=== PATIENT | female | born 1950 | race Caucasian/White ===

== ENCOUNTER 2016-06-09 09:15 | Outpatient (CLI) | payer BC ==
[~2016-06-09] VITALS: Ht 162.6 cm; Wt 71.7 kg
[~2016-06-09 09:15] MED LIST: ASP81CT; BUDE3CAP; BUDE3CAP PO; BUDE3CAP15 PO; CHOL200035 PO; CLC600T; CTRZ10T PO; ESTR1PAT7 TD; GLUCOSAMINE; GLYC2TAB PO; MEPE50TA PO; MERC50TA PO; PANT40TA; PANT40TA PO; POTASSIUM; Potassium Citrate PO; VIVELLE PATCH; [UNRECOGNIZED DRUG - OTHER]
--- OUTSIDE RECORDS SUMMARY | 2016-06-09 09:18 | XMS REPORT | Continuity of Care Document ---
Author Author [facility] Organization [facility] Address Unknown Phone Unavailable Care Team Providers Care Director Medical Science Name Role Phone DAYLIN WING MD PCP Insurance Providers Payer Name Policy Number Subscriber Name Relationship [facility] [id number] Turner Gunter 18 Self / Same As Patient Advance Directives Directive Response Recorded Date/Time Advance Directives No 03/28/16 8:18pm Health Care Power of Material Chaser No 03/28/16 8:18pm Organ Donor Yes 03/28/16 8:18pm Resuscitation Status Full Code 03/28/16 8:18pm Chief Complaint and Reason for Visit Chief Complaint Chest Pain Reason for Visit Chest pain Problems Active Problems Medical Problem Onset Date Status Chest pain Unknown Acute Medications Current Home Medications Medication Dose Units Route Directions Days/Qty Instructions Start Date Cetirizine Hcl 10 Mg Daily 02/17/08 [Purenethol] 1.5 Tab Daily 02/17/08 [Glucosamine] ?Mg Daily 02/17/08 Calcium Carbonate 600 Mg Daily 02/17/08 Pantoprazole Sodium 40 Mg 40 Mg Oral Daily 1 08/16/09 [Vivelle Patch] Twice Wk 08/21/11 [Potassium] 3 Tabs A.m./3 P.m. 08/21/11 Cholecalciferol (Vitamin D3) 2,000 Unit 2,000 Unit Oral Daily Past Home Medications Medication Directions Ordered Status Meperidine Hcl 50 Mg Tablet, 50 Mg Oral As Needed 08/10/09 Discontinued Pantoprazole Sodium 40 Mg Tablet., 08/10/09 Discontinued Social History Social History Problem Response Recorded Date/Time Alcohol Use Occasionally Uses 03/28/2016 8:18pm Recreational Drug Use No 03/28/2016 8:18pm Recent Foreign Travel No 03/28/2016 8:18pm Recent Infectious Disease Exposure No 03/28/2016 8:18pm Hospitalization with Isolation Denies 03/28/2016 8:18pm Sexually Transmitted Disease No 03/28/2016 8:18pm Smoking Status Never a Smoker 03/28/2016 8:18pm Recent Hopitalizations Y FOR SURGERIES 03/28/2016 8:18pm Sexually Transmitted Disease No 03/28/2016 8:18pm Hospitalization with Isolation Denies 03/28/2016 8:18pm Hx Sexually Transmitted Disorders No 08/10/2009 9:37pm Query Response Start Date Stop Date Smoking Status Never a Smoker Hospital Discharge Instructions No hospital discharge instructions. Plan of Care Discharge Date 03/28/16 10:30pm Disposition 01 HOME, SELF-CARE Condition at Discharge Improved Instructions/Education Provided Chest Pain (DC) Prescriptions See Medication Section Referrals Gustavo SORTO MD - DAYLIN WING MD - Primary Care Physician DAYLIN WING MD - Primary Care Physician Additional Instructions/Education You may take Tylenol and/or ibuprofen for pain. Take ibuprofen with food or milk to avoid stomach irritation Continue taking Nexium. Contact Dr. Sorto's office tomorrow to arrange a stress test on . Return to the emergency room with recurrent, persistent, or worsening symptoms. Take aspirin 81 mg daily until otherwise instructed. All discharge instructions reviewed with patient and/or family. Voiced understanding. Functional Status No functional status results. Allergies, Adverse Reactions, Alerts No known allergies. Immunizations No immunization records. Vital Signs Acute Vital Signs Vital Response Date/Time Temperature (Fahrenheit) 98.0 degrees F (97.6 - 99.5) 03/28/2016 10:34pm Temperature (Calculated Celsius) 36.22878 degrees C (36.4 - 37.5) 03/28/2016 10:34pm Temperature Source Temporal 03/28/2016 10:34pm Pulse Rate (adult) 65 bpm (60 - 90) 03/28/2016 10:34pm Respiratory Rate 15 bpm (12 - 24) 03/28/2016 10:34pm O2 Sat by Pulse Oximetry 97 % (88 - 100) 03/28/2016 10:34pm Blood Pressure 111/66 mm Hg 03/28/2016 10:34pm Blood Pressure Mean 95 mm Hg 03/28/2016 8:18pm Pain Numeric Pain Scale 9 03/28/2016 10:34pm Height (Feet) 5 feet 03/28/2016 8:18pm Height (Inches) 4.00 inches 03/28/2016 8:18pm Height (Calculated Centimeters) 162.267974 cm 03/28/2016 8:18pm Weight (Pounds) 159 pounds 03/28/2016 8:18pm Weight (Ounces) 0.0 oz 03/28/2016 8:18pm Weight (Calculated Grams) 43064.188 gm 03/28/2016 8:18pm Weight (Calculated Kilograms) 72.368105 kilograms 03/28/2016 8:18pm Calculated BMI 27.3 03/28/2016 8:18pm Capillary Refill Capillary Refill Less Than 3 Seconds 03/28/2016 8:18pm Capillary Refill Capillary Refill Less Than 3 Seconds 03/28/2016 8:18pm Results Laboratory Results Test Name Result Units Flags Reference Collection Date/Time Result Date/ Time Comments White Blood Count 5.3 10^3/uL 4.3-11.0 03/28/2016 8:29pm 03/28/2016 8: 49pm Red Blood Count 3.88 10^6/uL L 4.35-5.85 03/28/2016 8:29pm 03/28/2016 8: 49pm Hemoglobin 13.1 G/DL 11.5-16.0 03/28/2016 8:29pm 03/28/2016 8:49pm Hematocrit 38 % 35-52 03/28/2016 8:29pm 03/28/2016 8:49pm Mean Corpuscular Volume 99 FL 80-99 03/28/2016 8:29pm 03/28/2016 8: 49pm Mean Corpuscular Hemoglobin 34 PG 25-34 03/28/2016 8:29pm 03/28/2016 8: 49pm Mean Corpuscular Hemoglobin Concent 34 G/DL 32-36 03/28/2016 8:29pm 8:49pm Red Cell Distribution Width 15.6 % H 10.0-14.5 03/28/2016 8:29pm 2015 8:49pm Platelet Count 373 10^3/uL 130-400 03/28/2016 8:29pm 03/28/2016 8:49pm Mean Platelet Volume 8.4 FL 7.4-10.4 03/28/2016 8:29pm 03/28/2016 8: 49pm Neutrophils (%) (Auto) 65 % 42-75 03/28/2016 8:29pm 03/28/2016 8:49pm Lymphocytes (%) (Auto) 26 % 12-44 03/28/2016 8:29pm 03/28/2016 8:49pm Monocytes (%) (Auto) 7 % 0-12 03/28/2016 8:pm 03/28/2016 8:49pm Eosinophils (%) (Auto) 1 % 0-10 03/28/2016 8:29pm 03/28/2016 8:49pm Basophils (%) (Auto) 1 % 0-10 03/28/2016 8:pm 03/28/2016 8:49pm Neutrophils # (Auto) 3.4 X 10^3 1.8-7.8 03/28/2016 8:29pm 03/28/2016 8: 49pm Lymphocytes # (Auto) 1.4 X 10^3 1.0-4.0 03/28/2016 8:29pm 03/28/2016 8: 49pm Monocytes # (Auto) 0.4 X 10^3 0.0-1.0 03/28/2016 8:29pm 03/28/2016 8: 49pm Eosinophils # (Auto) 0.1 10^3/uL 0.0-0.3 03/28/2016 8:29pm 03/28/2016 8 :49pm Basophils # (Auto) 0.0 10^3/uL 0.0-0.1 03/28/2016 8:29pm 03/28/2016 8: 49pm Prothrombin Time 17.0 SEC H 12.2-14.7 03/28/2016 8:29pm 03/28/2016 8: 50pm INR Comment 1.4 0.8-1.4 03/28/2016 8:29pm 03/28/2016 8:50pm INTERPRETIVE DATA SUGGESTED THERAPEUTIC RANGE FOR INR'S: VENOUS THROMBOSIS, PULMONARY EMBOLISM, OR PREVENTION OF SYSTEMIC EMBOLISM (EG. IN ATRIAL FIBRILLATION): 2.0 - 3.0 MECHANICAL PROSTHETIC HEART VALVES: 2.5 - 3.5* *NOTE: INR'S UP TO 4.5 MAY BE NECESSARY IN SELECTED GROUPS OF HIGH RISK PATIENTS. [employer] CONSENSUS CONFERENCE ON ANTITHROMBOTIC THERAPY (2000). Activated Partial Thromboplast Time 43 SEC H 24-35 03/28/2016 8:29pm 8:51pm Sodium Level 139 MMOL/L 135-145 03/28/2016 8:29pm 03/28/2016 8:59pm Potassium Level 4.0 MMOL/L 3.6-5.0 03/28/2016 8:29pm 03/28/2016 8:59pm Chloride Level 108 MMOL/L H 98-107 03/28/2016 8:29pm 03/28/2016 8:59pm Carbon Dioxide Level 21 MMOL/L 21-32 03/28/2016 8:29pm 03/28/2016 8: 59pm Anion Gap 10 MMOL/L 5-14 03/28/2016 8:29pm 03/28/2016 8:59pm Blood Urea Nitrogen 14 MG/DL 7-18 03/28/2016 8:29pm 03/28/2016 8:59pm Creatinine 0.79 MG/DL 0.60-1.30 03/28/2016 8:29pm 03/28/2016 8:59pm BUN/Creatinine Ratio 18 03/28/2016 8:29pm 03/28/2016 8:59pm Estimat Glomerular Filtration Rate > 60 03/28/2016 8:292015 8:59pm GFR INTERPRETIVE DATA UNITS FOR ESTIMATED GFR (eGFR): mL/min/1.73 M2 REFERENCE RANGE FOR ESTIMATED GFR (eGFR) eGFR NORMAL eGFR >60 MODERATELY DECREASED eGFR 30-59 SEVERLY DECREASED eGFR 15-29 KIDNEY FAILURE <15 (OR DIALYSIS) Glucose Level 154 MG/DL H 70-105 03/28/2016 8:29pm 03/28/2016 8:59pm Calcium Level 8.4 MG/DL L 8.5-10.1 03/28/2016 8:29pm 03/28/2016 8:59pm Magnesium Level 2.0 MG/DL 1.8-2.4 03/28/2016 8:29pm 03/28/2016 8:59pm Total Bilirubin 0.9 MG/DL 0.1-1.0 03/28/2016 8:29pm 03/28/2016 8:59pm Alkaline Phosphatase 58 U/L 40-136 03/28/2016 8:29pm 03/28/2016 8:59pm Aspartate Amino Transf (AST/SGOT) 37 U/L H 5-34 03/28/2016 8:29pm 2015 8:59pm Alanine Aminotransferase (ALT/SGPT) 89 U/L H 0-55 03/28/2016 8:29pm 03/28 8:59pm Troponin I < 0.30 NG/ML <0.30 03/28/2016 8:29pm 03/28/2016 9:07pm Myoglobin 29.5 NG/ML 10.0-92.0 03/28/2016 8:29pm 03/28/2016 9:07pm Total Protein 6.1 G/DL L 6.4-8.2 03/28/2016 8:29pm 03/28/2016 8:59pm Albumin 3.9 G/DL 3.2-4.5 03/28/2016 8:29pm 03/28/2016 8:59pm Procedures Procedure Status Date Provider(s) Tracing only of electrocardiogram Active 03/28/16 BRANDIE BETANCOURT MD Encounters Encounter Location Arrival/Admit Date Discharge/Depart Date Attending Provider Departed Emergency Room [facility] 03/28/16 8:01pm 03/28 10:30pm BRANDIE BETANCOURT MD Recent Diagnosis
[2016-06-09] MEDS ORDERED: BUPIVACAINE 0.25% 30 ML (SENSORCAINE) VIAL ONE (09:24)
[2016-06-09] MEDS ORDERED: LIDOCAINE 1% INJ 20 ML (XYLOCAINE) VIAL ONE (09:24)
[2016-06-09] MEDS ORDERED: TRIAMCINOLONE ACET (KENALOG-40) 40 MG/ML 1 ML VIAL ONE (09:24)
[2016-06-09 09:35] VITALS: BP 143/88
[2016-06-09 10:07] VITALS: BP 128/75
--- NOTE | 2016-06-09 12:17 | Pain Medicine-Procedure ---
Procedure Pre-Op/Post-Op Diagnosis Diagnosis: Sacrococcygeal disorder Indications for Operation Hip pain Attending Surgeon Kianna Procedure Date of Service: Jun 09, 2016 Procedure: Flouroscopic guided left sacroiliac joint injection PROCEDURE IN DETAIL: After obtaining informed consent from the patient, the patient's chart was reviewed. The patient was then brought to the procedure room and placed in the prone position. A time out was performed. The back was prepped with antiseptic solution and under fluoroscopic guidance the patient's sacroiliac joint on the left side was identified. Left sacroiliac joint was identified with fluoroscopic guidance and 2 mL's of 1% lidocaine was used to anesthestize the skin and then one 22-gauge 3.5 inch spinal needle was inserted and advance under flouroscopic guidance until it was in the posterior inferior 1 /3 of the SI joint on the left side. After negative aspiration, needle was injected with 80 mg of Kenalog along with 2 mL's of 0.25% marcaine. Needle was then flushed with 1% lidocaine and then removed. Band-Aids were applied to all the sites and the patient tolerated the procedure well and was taken to the recovery area in stable condition. Complications None JERAMIE CAPONE MD Jun 09, 2016 12:17 pm
== END 2016-06-09 10:08 | disposition home or self-care (01) ==
LOC: CARD 09:15
PROVIDERS: ATTEND Pain Medicine Pain Medicine
DX: M53.3 Sacrococcygeal disorders, not elsewhere classified (principal); Z79.899 Other long term (current) drug therapy
CPT/HCPCS: 27096

== ENCOUNTER → 2016-07-13 | Outpatient (CLI) | payer BC ==
[~2016-07-13] MED LIST changes: +CALC-654 PO; +GLYC2TAB3 PO; +MAGN100T5 PO; +MELA1TAB10 PO; +NALTREXONE 4.5 MG PO; +PANT40TA3 PO; +POTA10TA17 PO; +POTA99TA21 PO; +PROGESTERONE PO; +RED600CA2 PO; +VITA1CAP PO; +[UNRECOGNIZED DRUG - CODE] PO
--- NOTE | 2016-07-13 19:18 | Diagnostic Imaging Report ---
Examination: DEXA scan. . Indication: Osteopenia. Technique: Bone mineral density estimated based on dual energy radiography over the lumbar spine and femoral necks, was performed. Findings: The lumbar spine T-score is -0.3. T-score over the left femoral neck is -0.8 and on the right is -0.9. The lumbar spine measurements are probably slightly exaggerated related to degenerative sclerotic component. IMPRESSION: Bone mineral density at the lower limits of normal.. Dictated by: Dictated on workstation # [id number]
== END ==
LOC: RAD 08:53
PROVIDERS: ATTEND Obstetrics & Gynecology Female Pelvic Medicine and Reconstructive Surgery
DX: Z13.820 Encounter for screening for osteoporosis (principal)
CPT/HCPCS: 77080

== ENCOUNTER 2016-07-27 06:51 | Day surgery (SDC) | payer BC ==
[2016-07-27] VITALS (9 sets, daily range): BP systolic 126–137; BP diastolic 67–90
[~2016-07-27] VITALS: Ht 162.6 cm; Wt 67.6 kg
[~2016-07-27 06:51] MED LIST changes: -CALC-654 PO; -GLYC2TAB3 PO; -MAGN100T5 PO; -MELA1TAB10 PO; -NALTREXONE 4.5 MG PO; -PANT40TA3 PO; -POTA10TA17 PO; -POTA99TA21 PO; -PROGESTERONE PO; -RED600CA2 PO; -VITA1CAP PO; -[UNRECOGNIZED DRUG - CODE] PO
[2016-07-27] MEDS ORDERED: HEParin (CATH LAB) 2,000 ML IV ONE (06:59)
[2016-07-27] MEDS ORDERED: LIDOCAINE 1% INJ 20 ML (XYLOCAINE) VIAL ONE (06:59)
[2016-07-27] MEDS ORDERED: NS IV 1000 ML 1,000 ML ONE (06:59)
[2016-07-27] MEDS ORDERED: NS IV 1000 ML 1,000 ML IV SCH ×3 (07:03→10:08)
[2016-07-27 07:27] LABS: MEAN PLATELET VOLUME 8.6 FL (7.4-10.4); RED BLOOD COUNT 3.71 10^6/uL (4.35-5.85); WHITE BLOOD COUNT 6.4 10^3/uL (4.3-11.0)
[2016-07-27 07:42] LABS: INR 1.3 (0.8-1.4); PROTHROMBIN TIME PATIENT 15.6 SEC (12.2-14.7)
[2016-07-27 08:00] LABS: ALANINE AMINOTRANSFERASE 93 U/L (0-55); ALBUMIN 4.1 G/DL (3.2-4.5); ANION GAP 10 MMOL/L (5-14); ASPARTATE AMINO TRANSFERASE 58 U/L (5-34); BILIRUBIN,TOTAL 1.1 MG/DL (0.1-1.0); BLOOD UREA NITROGEN 12 MG/DL (7-18); BUN/CREATININE RATIO 16; CALCIUM 9.2 MG/DL (8.5-10.1); CARBON DIOXIDE 24 MMOL/L (21-32); CHLORIDE 108 MMOL/L (98-107); CREATININE SERUM 0.73 MG/DL (0.60-1.30); GFR ESTIMATED > 60; GLUCOSE 98 MG/DL (70-105); POTASSIUM 3.8 MMOL/L (3.6-5.0); SODIUM 142 MMOL/L (135-145); TOTAL PROTEIN 6.7 G/DL (6.4-8.2)
[2016-07-27] MEDS ORDERED: CALC-654 PO (08:30)
[2016-07-27] MEDS ORDERED: POTA99TA21 PO (08:30)
[2016-07-27] MEDS ORDERED: MELA1TAB10 PO (08:30)
[2016-07-27] MEDS ORDERED: PANT40TA3 PO (08:30)
[2016-07-27] MEDS ORDERED: VITA1CAP PO (08:30)
[2016-07-27] MEDS ORDERED: GLYC2TAB3 PO (08:30)
[2016-07-27] MEDS ORDERED: MAGN100T5 PO (08:30)
[2016-07-27] MEDS ORDERED: POTA10TA17 PO (08:30)
[2016-07-27] MEDS ORDERED: [UNRECOGNIZED DRUG - CODE] PO (08:30)
[2016-07-27] MEDS ORDERED: RED600CA2 PO (08:33)
[2016-07-27] MEDS ORDERED: NALTREXONE 4.5 MG PO (08:38)
[2016-07-27] MEDS ORDERED: PROGESTERONE PO (08:38)
[2016-07-27] MEDS ORDERED: fentaNYL INJECTION 100 MCG/2 ML AMP ONE (09:11)
[2016-07-27] MEDS ORDERED: MIDAZOLAM 5 MG/5 ML (VERSED) VIAL ONE (09:11)
[2016-07-27] MEDS ORDERED: VERAPAMIL 5 MG/2 ML (CALAN) VIAL IV ONE (09:21)
[2016-07-27] MEDS ORDERED: HEParin 1000 UNIT/ML (10ML VIAL) FOR BOLUS ONE (09:21)
[2016-07-27] MEDS ORDERED: NITROGLYCERIN DRIP 25 MG/D5W 250 ML IV ONE (09:22)
--- NOTE | 2016-07-27 10:07 | Cardiac Procedure Note-CS/ASA ---
Pre-Procedure Note Pre-Op Procedure Note H&P Reviewed The H&P was reviewed, patient examined and no changes noted. Date H&P Reviewed: Jul 27, 2016 Time H&P Reviewed: 09:00 Conscious Sedation Pre-Proced Time Reviewed: 09:00 ASA Class: 3 Airway Mallampati Classification: ([place] appropriate class) I. II. III, IV Lungs Heart ASA score ASA 1: a normal healthy patient ASA 2: a patient with a mild systemic disease (mid diabetes, controlled hypertension, obesity ASA 3: a patient with a severe systemic disease that limits activity (angina , COPD, prior Myocardial infarction) ASA 4: a patient with an incapacitating disease that is a constant threat to life (CHF, renal failure) ASA 5: a moribund patient not expected to survive 24 hrs. (ruptured aneurysm) ASA 6: a declared brain patient whose organs are being harvested. For emergent operations, add the letter E after the classification Grade 1 Sedation Plan: Analgesia, Amnesia, Plan communicated to team members, Discussed options with patient/fam, Discussed risks with patient/fam Note The patient is an appropriate candidate to undergo the planned procedure, sedation, and anesthesia. The patient immediately re-assessed prior to indication. Gustavo MCKEON MD Jul 27, 2016 10:06 am
--- NOTE | 2016-07-27 10:08 | Cardiology Post Procedure Note ---
Post-Procedure Note Post-Op Procedure Note Procedure Start Date: Jul 27, 2016 Procedure Start Time: 09:20 Name of Procedure: Coronary angiogram, [facility] Findings/Procedure Note patent epicardial coronary arteries, normal LV function LVEDP 14mmhg Anesthesia Type: Conscious Sedation Estimated blood loss (mL): 10 Contrast Amount: 59ml omnipaque Post-Operative Diagnosis Post-operative diagnosis: patent epicardial coronary arteries Gustavo MCKEON MD Jul 27, 2016 10:08 am
--- NOTE | 2016-07-27 10:10 | Discharge Inst-Post CATH ---
Discharge Inst-CATH Post Cardiac Cath D/C Inst Follow Up/Plan follow up with Dr Sorto in one to two weeks CARDIAC CATH DISCHARGE INSTRUCTIONS *Hold Metformin for 48 hours post heart cath. ACTIVITY * Go Home directly and rest. * Limit activity of the leg (or wrist if it was used) for 7 days including aerobics, swimming, jogging, bicycling, etc. * Restrict stair-climbing for 7 days if possible, if not, climb up with your non -cath leg, then bring together on the same step. * Avoid lifting, pushing, pulling or excessive movement of the affected extremity for 7 days. * Customary sexual activity may be resumed after 2 days-use caution not to use a position that strains or causes pain to the affected extremity. * No driving for 24 hours. * NO SMOKING. * Avoid straining for bowel movements for 7 days. * Gentle walking on level ground is allowed. * Returning to work will depend on the type of procedure and the results. Your doctor will discuss this with you. CALL YOUR DOCTOR FOR ANY OF THE FOLLOWING: *If bleeding from the puncture site occurs- Apply gentle pressure to site with clean cloth and call your doctor or EMS. * If a knot or lump forms under the skin, increases in size, or causes pain. * If bruising appears to be worsening or moving further down your leg instead of disappearing. * Temperature above 101 F. CARE OF YOUR GROIN INCISION; * Bruising or purple discoloration of the skin near the puncture site is common. * You may shower only, no bathtub bathing for 5 days. Be careful to avoid slipping as your leg may feel stiff. * If a closure device was used on your femoral artery, please see the attached guide regarding care of the device and your leg. * REMOVE the dressing from your groin the next day after your procedure in the shower. CARE OF YOUR WRIST INCISION; * Bruising or purple discoloration of the skin near the puncture site is common. * You may shower. * DO NOT submerge wrist. * Remove dressing in 24 hours. Gustavo SORTO MD Jul 27, 2016 10:10 am
--- NOTE | 2016-07-27 10:12 | Cardiology Discharge Summary ---
Diagnosis/Chief Complaint Date of Admission 07/27/2016 Date of Discharge 07/27/2016 Admission Diagnosis chest pain, abnormal nuclear stress test Final/Discharge Diagnosis patent coronary vessels Chief Complaint/HPI Chief Complaint/HPI chest pain, abnormal nuclear stress test Discharge Summary Procedures None. Discharge Physical Examination stable Hospital Course stable Pending Labs Laboratory Tests 07/27/16 07:20: White Blood Count 6.4, Red Blood Count 3.71, Hemoglobin 14.1, Hematocrit 41, Mean Corpuscular Volume 111, Mean Corpuscular Hemoglobin 38, Mean Corpuscular Hemoglobin Concent 34, Red Cell Distribution Width 13.0, Platelet Count 347, Mean Platelet Volume 8.6, Prothrombin Time 15.6, INR Comment 1.3, Activated Partial Thromboplast Time 43, Sodium Level 142, Potassium Level 3.8, Chloride Level 108, Carbon Dioxide Level 24, Anion Gap 10, Blood Urea Nitrogen 12, Creatinine 0.73, Estimat Glomerular Filtration Rate > 60, BUN/Creatinine Ratio 16, Glucose Level 98, Calcium Level 9.2, Total Bilirubin 1.1, Aspartate Amino Transf (AST/SGOT) 58, Alanine Aminotransferase (ALT/SGPT) 93, Alkaline Phosphatase 50, Total Protein 6.7, Albumin 4.1 Discussion & Recommendations Discussion patent coronary arteries Follow up appt.: follow up with Dr Sorto in one to two weeks Dicharge Diet: Cardiac Diet Home Medications Reviewed patient Home Medication Reconciliation Form Discharge Home Medications: Reviewed and agree with Discharge Medication list on patient's Discharge Instruction sheet Condition at discharge stable Instructions to patient/family follow up with Dr Sorto in one to two weeks Gustavo SORTO MD Jul 27, 2016 10:12
[2016-07-27] MEDS ORDERED: PATIENT MAY USE OWN MEDS, ALL PO SCH (10:15)
--- NOTE | 2016-07-27 15:34 | CARDIAC CATHETERIZATION ---
DATE OF SERVICE: 07/27/2016 CORONARY ANGIOGRAPHY INDICATION: Chest pain, abnormal nuclear stress test. PREOPERATIVE DIAGNOSIS: Recurrent chest pain, abnormal nuclear stress test. POSTOPERATIVE DIAGNOSIS: Patent epicardial coronary vessels. HISTORY: The patient is a 65-year-old lady with history of Crohn's disease. She has been on steroids in the past. She presented with recurrent chest pain episodes. Nuclear stress test was performed which was abnormal. Initially she was treated with medical therapy; however, she continued to have recurrent and worsening chest pain episodes; therefore, coronary angiography was recommended. PROCEDURE PERFORMED: 1. Coronary angiography. 2. Left heart catheterization. COMPLICATIONS: None. BLOOD LOSS: 10 mL. ANTICOAGULATION: IV heparin. ANESTHESIA: Conscious sedation. FLUOROSCOPY TIME: 4.3 minutes. FLUOROSCOPY DOSE: 108 mGy. CONTRAST: 59 mL of Omnipaque. PROCEDURE DETAILS: The patient was brought to the laborer/key man after informed consent was taken. All the risks and complications were explained in detail. She was draped and prepped in the usual sterile fashion. Access was gained in the right radial artery with a 6-[place] sheath. Coronary angiography and left heart catheterization was performed with a Jesus catheter. FINDINGS: 1. Left main is patent. 2. The LAD has luminal irregularities. 3. Left circumflex artery is patent. 4. The RCA is patent. 5. Left heart catheterization: LV pressure 116/8 mmHg. Aortic pressure 109/73 mmHg. LVEDP 14 mmHg. Normal LV function with no wall motion abnormalities. No gradient across the aortic valve. Mild myocardial staining noted during the LV-gram. IMPRESSION/CONCLUSION: 1. No significant epicardial coronary artery disease. 2. Continue primary prevention measures. Job ID: [id number] DocumentID: [id number] Dictated Date: 07/27/2016 10:18:50 Golf Ball Cover Treater Date: 07/27/2016 15:34:14 Dictated By: ADAM MCKEON MD
== END 2016-07-27 14:10 | disposition home or self-care (01) ==
LOC: CATH 06:51 → SURG 10:19 → ENPENDDIS 14:00 → CATH 14:10
PROVIDERS: ATTEND Internal Medicine Interventional Cardiology
DX: R07.89 Other chest pain (principal); G47.30 Sleep apnea, unspecified; K31.9 Disease of stomach and duodenum, unspecified; Z79.899 Other long term (current) drug therapy
CPT/HCPCS: 36415; 80053; 85027; 85610; 85730; 87081; 93005; 93458

== ENCOUNTER → 2017-03-09 | Outpatient (CLI) | payer MEDICARE, OTHER ==
[~2017-03-09] MED LIST changes: +CALC-654 PO; +GLYC2TAB3 PO; +MAGN100T5 PO; +MELA1TAB10 PO; +NALTREXONE 4.5 MG PO; +PANT40TA3 PO; +POTA10TA17 PO; +POTA99TA21 PO; +PROGESTERONE PO; +RED600CA2 PO; +VITA1CAP PO; +[UNRECOGNIZED DRUG - CODE] PO
--- NOTE | 2017-03-09 08:51 | Diagnostic Imaging Report ---
PROCEDURE: MR imaging cervical spine without contrast. TECHNIQUE: Multiplanar, multisequence MR imaging of the cervical spine was performed without contrast. INDICATION: Right shoulder pain. FINDINGS: There is straightening of the cervical spine curvature. The vertebral body heights are preserved. There is disc desiccation at all levels with minimal disc height loss seen at the upper and lower cervical spine levels. The alignment of the posterior spinal line is satisfactory. The spinal cord has normal caliber and contour. There is increased T2 signal seen along the anterior aspect of the spinal cord around the mid cervical spine levels in the linear fashion, questioned to be artifactual. If this is a true pathological finding, this appears to be very thin and within the white matter tracts anteriorly potentially related to mild nonspecific demyelination or degeneration of a white matter tract. The foramen magnum and upper cervical canal are widely patent. C2-C3: No significant disc herniation, no spinal canal or foraminal stenosis. C3-C4: There is a disc spur complex reducing the AP dimension of the spinal canal to 7.7 mm, [id number] stenosis. No cord compression. The uncovertebral and facet joints demonstrate hypertrophy resulting in mild stenosis bilaterally. C4-C5: There is a disc spur complex associated with mild spinal canal stenosis reducing the AP dimension of the canal to 9.6 mm. The foramina demonstrate bilateral stenosis of moderate degree. C5-C6: There is a disc spur complex with no significant stenosis. No cord compression. There is mild foraminal narrowing only on the left side. C6-C7: There is a spur disc complex without spinal canal stenosis or cord compression. There is minimal bilateral foraminal stenosis. C7-T1: There is a small spur disc complex and posterior ligamentous hypertrophy with no significant spinal canal stenosis or cord compression. The foramina demonstrate moderate narrowing on the left and no significant stenosis on the right side. IMPRESSION: 1. Degenerative changes seen with no high-grade spinal canal stenosis or cord compression. 2. Thin linear anterior T2 hyperintense signal noted in the spinal cord around the [id number] cervical spine levels. This could be artifactual versus nonspecific demyelination or degeneration involving anterior white matter tracts in the cord. Dictated by: Dictated on workstation # [id number]
== END ==
LOC: RAD 06:53
PROVIDERS: ATTEND Family Medicine
DX: M47.812 Spondylosis without myelopathy or radiculopathy, cervical region (principal); M25.511 Pain in right shoulder
CPT/HCPCS: 72141

== ENCOUNTER → 2017-03-19 | Outpatient (CLI) | payer MEDICARE, OTHER ==
--- NOTE | 2017-03-19 08:29 | Diagnostic Imaging Report ---
PROCEDURE: MR imaging of the brain without contrast. TECHNIQUE: Multiplanar, multisequence MR imaging of the brain was performed without contrast. INDICATION: Right shoulder and arm pain. COMPARISON: 08/11/2009. FINDINGS: There is no diffusion restriction to suggest an acute infarct or other diffusion abnormality. There is mild periventricular and deep white matter T2 signal abnormality seen similar to 2010 exam with no obvious change. No mass effect or edema noted. There is no hydrocephalus. The central vascular flow-voids appear grossly unremarkable. Internal auditory canal structures are symmetric. The pituitary gland is normal in size. No hypothalamic or pineal region mass. There is mild mucosal thickening seen in the left maxillary sinus. IMPRESSION: White matter findings are likely secondary to mild chronic microvascular ischemic changes. No acute process. Dictated by: Dictated on workstation # [id number]
== END ==
LOC: RAD 07:29
PROVIDERS: ATTEND Family Medicine
DX: R90.89 Other abnormal findings on diagnostic imaging of central nervous system (principal); M25.511 Pain in right shoulder
CPT/HCPCS: 70551